=== PATIENT | female | born 1960 | race Caucasian/White ===

== ENCOUNTER 2021-05-09 07:50 | Day surgery (SDC) | payer OTHER ==
[~2021-05-09] VITALS: Ht 170.2 cm; Wt 84.4 kg
[~2021-05-09 07:50] MED LIST: FAMOTIDINE20 MG PO; FISH OIL 1,0001 EAC3 PO; FLOVENT HFA10.6 GM INH; LEVOTHYROXINE25 MC1 PO; PROAIR HFA8.5 GM INH; SINGULAIR10 MG PO; TURMERIC500 M2 PO; VITAMIN D310 MC4 PO
--- NOTE | 2021-05-09 09:39 | NUR ---
05/09/21 0939 Jasmyn Alvarez 2137-PATIENT ARRIVED TO PACU ON RA RR EVEN AWAKE DENIES PAIN OR NAUSEA. LAYING LEFT LATERAL IVF INFUSING. ABDOMEN SOFT PASSING GAS.
--- NOTE | 2021-05-09 10:25 | OR ---
[facility] [address] [place], [place] [address] Signed DATE OF OPERATION: 05/09/2021 SURGEON: Nicolasa Powell MD PREOPERATIVE DIAGNOSES: 1. Screening. 2. Diverticulosis in 2010. POSTOPERATIVE DIAGNOSES: 1. Minimal sigmoid diverticulosis. 2. 3 mm lesion on the ileocecal valve. PROCEDURE: Colonoscopy without biopsy. ESTIMATED BLOOD LOSS: None. INDICATIONS: Ericka is a 61-year-old female, asked to see me for a followup screening colonoscopy. Her initial colonoscopy came at age 50 back in 2010. We found minimal sigmoid diverticulosis. There is no family history of colon cancer or polyps. She has no lower GI complaints currently. In the office, I gave her a pamphlet on colonoscopy. She understands the nature of that test. There is risk including, but not limited to gas bloating, crampy abdominal pain, bleeding, perforation requiring surgery, and missed diagnosis. She also understands the need for IV conscious sedation. She had expressed understanding and wished to proceed. PROCEDURE NOTE: Ericka was taken into our endoscopy suite and placed in the left lateral decubitus position. She was given IV sedation with 6 mg of Versed and 150 mcg of fentanyl. A digital rectal exam was performed and this was unremarkable. The adult colonoscope was introduced, advanced all around into the cecum under direct visualization of the camera without difficulty. Her prep was quite excellent. We could easily see the appendiceal orifice and ileocecal valve. We had taken pictures throughout for photodocumentation. She had an extremely tiny 3 mm lesion on the ileocecal valve. We went ahead and biopsied that for pathologic review. The rest of the colon was unremarkable except for a few diverticula in the sigmoid colon. They were few in number, minimal to moderate in size and scattered about. The rectum was unremarkable. Upon retroflexion of scope, there was no additional pathology noted above the anal canal. After this, the gas was Electronically Signed By: NICOLASA POWELL MD 05/09/21 1025 PATIENT NAME: ERICKA ROBISON [facility] OPERATIVE REPORT DATE OF : 58 REPORT #: [id number] PHYSICIAN: NICOLASA POWELL MD PCP: AILYN STARKS MD REPORT IS CONFIDENTIAL AND NOT TO BE RELEASED WITHOUT AUTHORIZATION [facility] [address] [place] [id number] Signed suctioned out and the colonoscope removed. Ericka tolerated the procedure quite well. RECOMMENDATIONS: I will see Ericka back in my office in 7 to 14 days to review her results. MD ALVARADO Stephen/HERIBERTO /[id number] cc: MD Nicolasa Marte MD Copies: AILYN STARKS MD, ANDREW L MD ~ Electronically Signed By: NICOLASA POWELL MD 05/09/21 1025 PATIENT NAME: ERICKA ROBISON [facility] OPERATIVE REPORT DATE OF : 58 REPORT #: [id number] PHYSICIAN: NICOLASA POWELL MD PCP: AILYN STARKS MD REPORT IS CONFIDENTIAL AND NOT TO BE RELEASED WITHOUT AUTHORIZATION
--- NOTE | 2021-05-10 13:15 | PATH ---
[facility] [address] [place], [place] [address] Signed SPECIMEN(S): A ILEOCECAL VALVE BIOPSY SPECIMEN SOURCE: A. ILEOCECAL VALVE BIOPSY CLINICAL HISTORY: Screening colonoscopy. MICROSCOPIC DESCRIPTION: Histologic sections of all submitted blocks are examined by light microscopy. These findings, together with the gross examination, support the pathologic diagnosis. FINAL PATHOLOGIC DIAGNOSIS: Ileocecal valve, biopsy: - Tubular adenoma. - There is no evidence of high-grade dysplasia or malignancy. TWK:emh:C2NR GROSS DESCRIPTION: The specimen, labeled "PM, 1," and designated on the requisition "ileocecal valve," is received in formalin and consists of one moura soft tissue fragment that measures 0.3 cm in greatest dimension. The specimen is entirely submitted in cassette (A1). AT (under the direct supervision of a pathologist) The Gross Description was prepared using a voice recognition system. The report was reviewed for accuracy; however, sound-alike word errors, addition and/or deletions may occur. If there is any question about this report, please contact Client Services. PERFORMING LABORATORY: The technical component was performed by [employer] [address] [place] [id number] ([employer]er: Sepideh Aponte MD; CLIA# [id number]). Professional interpretation was performed by [employer], [address] [address] (CLIA# [id number]). Diagnostician: Lee Ariza MD Pathologist Electronically Signed 05/10/2021 PATIENT NAME: JENNY ROBISON PATHOLOGY DATE OF : 58 REPORT #: [id number] PHYSICIAN: [facility] PCP: AILYN STARKS MD REPORT IS CONFIDENTIAL AND NOT TO BE RELEASED WITHOUT AUTHORIZATION [address] [place], [place] [address] Signed Copies: ~ PATIENT NAME: JENNY ROBISON [facility] DATE OF : 58 REPORT #: [id number] PHYSICIAN: [facility] PCP: AILYN STARKS MD REPORT IS CONFIDENTIAL AND NOT TO BE RELEASED WITHOUT AUTHORIZATION
== END 2021-05-09 10:10 | disposition home or self-care (01) ==
LOC: DS 07:50 → OPS 07:50 → DS 09:00 → OPS 09:00
PROVIDERS: ATTEND Colon & Rectal Surgery
PROC: 0DBC8ZZ Excision of Ileocecal Valve, Via Natural or Artificial Opening Endoscopic (ICD-10-PCS; principal; 2021-05-09 09:00)
DX: Z12.11 Encounter for screening for malignant neoplasm of colon (principal); D12.0 Benign neoplasm of cecum; K57.30 Diverticulosis of large intestine without perforation or abscess without bleeding; E03.9 Hypothyroidism, unspecified; J45.909 Unspecified asthma, uncomplicated
CPT/HCPCS: 99153; G0500; J2250; J3010; J7121